=== PATIENT | male | born 1980 ===

== ENCOUNTER 2018-08-31 15:06 | Emergency (ER) | payer MEDICAID, OTHER ==
[2018-08-31] MEDS ORDERED: Tdap Vaccine 0.5 ml Vial (10-64 yrs) IM ONE (15:24)
[2018-08-31] MEDS ORDERED: Sodium Chloride 0.9% 500 ML IV STA (15:24)
[2018-08-31] MEDS ORDERED: Bacitracin 500 Units/gm Oint Foilpak UD TOP ONE (15:24)
[2018-08-31] MEDS ORDERED: Multivitamin (MVI) 10 ML, Thiamine 100 MG, Folic Acid 1 MG in Sodium Chloride 0.9% 1,00... IV ONE (15:24)
[2018-08-31 15:47] LABS: BASO # 0.1 K/uL (0.0-0.2); BASO % 0.8 % (0.0-2.0); EOS # 0.3 K/uL (0.0-0.7); EOS % 3.7 % (0.0-4.0); HEMOGLOBIN 13.7 g/dL (12.0-18.0); LYMPH # 3.5 K/uL (1.0-4.3); LYMPH % 39.8 % (20.0-40.0); MEAN CELL VOLUME 83.1 fl (80.0-94.0); MEAN CORPUSCULAR HGB CONC 33.6 g/dL (33.0-37.0); MEAN PLATELET VOLUME 8.1 fl (7.2-11.7); MONO # 0.6 K/uL (0.0-0.8); NEUT # 4.3 K/uL (1.8-7.0); NEUT % 48.7 % (50.0-75.0); NRBC % 0.1 % (0.0-0.0); RBC 4.91 Mil/uL (4.40-5.90); RED CELL DISTRIBUTION WIDTH 15.9 % (11.5-14.5); WHITE BLOOD COUNT 8.8 K/uL (4.8-10.8)
--- NOTE | 2018-08-31 15:52 | ED PDOC ---
HPI: Psych/Substance Abuse Time Seen by Provider: 08/31/18 15:09 Chief Complaint (Nursing): Substance Abuse Chief Complaint (Provider): Substance Abuse History Per: Patient History/Exam Limitations: no limitations Onset/Duration Of Symptoms: Mins Current Symptoms Are (Timing): Still Present Modifying Factor(s): Marijuana, Cocaine Additional Complaint(s): 38 year old male with a history of polysubstance abuse, asthma and diabetes presents to the ED for an evaluation of drug and alcoholic intoxication. Patient fell down after using a bag of heroin that he snorted. As per EMS, patient was found on the floor minimally responsive, with head injury and breathing at [employer]. Dosage of intranasal narcan administered by EMS. Patient admits to drinking alcohol heavily and usage of marijuana. He has been seen at [facility]. Denies SI/HI or hallucinations. Past Medical History Reviewed: Historical Data, Nursing Documentation, Vital Signs Vital Signs: Last Vital Signs Temp 98.1 F 08/31/18 15:08 Pulse 116 H 08/31/18 15:08 Resp 18 08/31/18 15:08 BP 96/47 L 08/31/18 15:08 Pulse Ox 100 08/31/18 15:08 - Medical History PMH: Asthma, Bronchitis, Depression Denies: Diabetes, Hepatitis, HIV, HTN, Chronic Kidney Disease, Seizures, Sexually Transmitted Disease - Surgical History Surgical History: Tonsillectomy - Family History Family History: States: Unknown Family Hx - Social History Current smoker - smoking cessation education provided: Yes Alcohol: Social Drugs: Cannabis - Immunization History Hx Tetanus Toxoid Vaccination: No Hx Influenza Vaccination: No Hx Pneumococcal Vaccination: No - Home Medications Home Medications: Ambulatory Orders Medication Instructions Recorded RX: Albuterol HFA [Ventolin HFA 90 2 puff IH [id number] 07/20/18 mcg/actuation (8 g)] Fluticasone Propionate [Flovent 0.044 mg IH BID 30 Days #1 ml 07/30/18 Hfa] Methylprednisolone [Medrol Dose 4 mg PO DAILY #21 mg 07/30/18 Pack (21 tabs)] RX: Escitalopram [Lexapro] 10 mg PO DAILY #30 tab 07/30/18 RX: Folic Acid 1 mg PO DAILY #30 tab 07/30/18 RX: Gabapentin [Neurontin] 300 mg PO TID #90 cap 07/30/18 RX: Multivitamins [Hexavitamin] 1 tab PO DAILY tab 07/30/18 RX: Thiamine [Vitamin B1 Tab] 100 mg PO DAILY #30 tab 07/30/18 RX: traZODone [Desyrel] 100 mg PO HS #30 tab 07/30/18 RX: Albuterol HFA [Ventolin HFA 90 1 puff INH RQ6 PRN #1 inhaler 08/21/18 mcg/actuation (8 g)] RX: Gabapentin [Neurontin] 100 mg PO TID #90 cap 08/21/18 RX: buPROPion XL [Wellbutrin XL] 150 mg PO DAILY #30 t24 08/21/18 RX: traZODone [Desyrel] 50 mg PO HS #30 tab 08/21/18 Azithromycin [Zithromax] 250 mg PO DAILY #6 tab 08/25/18 Methylprednisolone [Medrol Dose 4 mg PO DAILY #21 mg 08/25/18 Pack (21 tabs)] RX: Albuterol HFA [Ventolin HFA 90 2 puff IH [id number] #1 inhaler 08/25/18 mcg/actuation (8 g)] Naloxone HCl [Narcan] 4 mg NS ONCE PRN #1 spray 08/31/18 - Allergies Allergies/Adverse Reactions: Allergies Allergy/AdvReac Type Severity Reaction Status Date / Time No Known Allergies Allergy Verified 08/31/18 15:08 Review of Systems Review Of Systems: ROS cannot be obtained secondary to pt's inabilty to answer questions. Musculoskeletal: Positive for: Neck Pain, Back Pain Skin: Positive for: Lesions (face) Neurological: Positive for: Headache Psych: Negative for: Suicidal ideation (homicidal ideation) Physical Exam - Reviewed Nursing Documentation Reviewed: Yes Vital Signs Reviewed: Yes - Physical Exam Appears: Positive for: Non-toxic (lethargic, homeless, disheveled, unkept) Head Exam: Positive for: ATRAUMATIC, NORMAL INSPECTION, NORMOCEPHALIC Eye Exam: Positive for: Normal appearance, EOMI, PERRL ENT: Positive for: Other (Hemostatic superficial irregular laceration on nasal bridge, not gaping and subtle nasal edema) Neck: Positive for: Decreased ROM (posterior neck with no step-up on cervical spine) Cardiovascular/Chest: Positive for: Regular Rate, Rhythm, Tachycardia Respiratory: Positive for: Normal Breath Sounds. Negative for: Wheezing, Respiratory Distress Gastrointestinal/Abdominal: Positive for: Soft. Negative for: Tenderness Back: Positive for: Normal Inspection. Negative for: L CVA Tenderness, R CVA Tenderness Extremity: Negative for: Deformity Lymphatic: Negative for: Adenopathy Neurologic/Psych: Positive for: Alert, Oriented (x3), Other (slurred speech). Negative for: Motor/Sensory Deficits - Laboratory Results Result Diagrams: 08/31/18 15:30 08/31/18 15:30 - ECG O2 Sat by Pulse Oximetry: 100 (RA) Pulse Ox Interpretation: Normal - CT Scan/US CT head w/o contrast Other Rad Studies (CT/US): Read By Radiologist, Radiology Report Reviewed (see MDM note) CT maxillofacial w/o contrast Other Rad Studies (CT/US): Read By Radiologist, Radiology Report Reviewed (see MDM note) Medical Decision Making Medical Decision Making: Time: 1524 Initial Impression: Drug intoxication, head injury, facial abrasion Differential Diagnosis: traumatic brain injury, dehydration, facial fracture Initial Plan: Head w/o Contrast [CT] Maxillofacial w/o Contrast [CT] EKG Alcohol Serum CMP Drug Screen Magnesium Phosphorus ED Urine Dipstick CBC w/ Differential Glucose, Blood, POC Tetanus 0.5ml Normal Saline 500mls/hr Bacitracin Sodium Chloride 0.9% 1000ml MVI 10ml Thiamine 100mg 150mls/hr Paid Intern Reevaluation Time: 1636 CT head w/o contrast read and reviewed by radiologist FINDINGS: HEMORRHAGE: No intracranial hemorrhage. BRAIN: No mass effect or edema. No evidence of acute infarct. There is incidental calcification along the anterior falx cerebri. VENTRICLES: No hydrocephalus. Incidental cavum septum pellucidum. CALVARIUM: No fracture. Right frontal scalp contusion with small hematoma. PARANASAL SINUSES: Minimal chronic ethmoid, sphenoid and bilateral maxillary sinusitis. MASTOID AIR CELLS: Bilateral nonspecific mastoid effusions. Correlate clinically. OTHER FINDINGS: None. IMPRESSION: No intracranial hemorrhage. Right frontal scalp contusion with small hematoma. Mild chronic paranasal sinusitis. Nonspecific bilateral mastoid effusions. Time: 1639 CT maxillofacial w/o contrast read and reviewed by radiologist FINDINGS: NASAL BONES: Unremarkable. ORBITS: No fracture. No intraorbital hemorrhage. Globes rounded and symmetric. PARANASAL SINUSES/ MASTOIDS: Mild chronic sphenoid, ethmoid and bilateral maxillary sinusitis. MAXILLA: Unremarkable. MANDIBLE/ TEMPOROMANDIBULAR JOINTS: Unremarkable. SKULL BASE: Unremarkable. TEMPORAL BONES: No fluid or soft tissue density within the middle ear bilaterally. Nonspecific bilateral mastoid effusion noted. OTHER FINDINGS: None. IMPRESSION: No evidence of acute facial fracture. Mild chronic paranasal sinusitis. Nonspecific bilateral mastoid effusion. 2200 Pt sleeping, easily arousable, reporting hunger. 2300 Pt ate meal in ER. Maintaining alertness with no signs of withdrawal. Stable for discharge. Drug addiction resources provided. Scribe Attestation: Documented by Alicia Frost, acting as a scribe for Gina Robison MD. Provider Scribe Attestation: All medical record entries made by the Scribe were at my direction and personally dictated by me. I have reviewed the chart and agree that the record accurately reflects my personal performance of the history, physical exam, medical decision making, and the department course for this patient. I have also personally directed, reviewed, and agree with the discharge instructions and disposition. Scribe Attestation: Documented by Josephine Harrison, acting as a scribe for Gina Robison MD. Provider Scribe Attestation: All medical record entries made by the Scribe were at my direction and personally dictated by me. I have reviewed the chart and agree that the record accurately reflects my personal performance of the history, physical exam, medical decision making, and the department course for this patient. I have also personally directed, reviewed, and agree with the discharge instructions and disposition. Disposition - Clinical Impression Clinical Impression: Head injury, Opioid use disorder, severe, dependence, Alcohol intoxication - Disposition Referrals: [facility] [Outside] [facility] [Outside] Disposition: Routine/Home Disposition Time: 23:28 Condition: IMPROVED Prescriptions: Naloxone HCl [Narcan] 4 mg NS ONCE PRN #1 spray PRN Reason: opiate overdose Instructions: Wound Care (DC), Minor Head Injury (DC), Alcohol Abuse and Alcoholism (DC), Opioid Use Disorder
[2018-08-31 15:54] LABS: ALB/GLOB RATIO 1.3 (1.0-2.1); ALBUMIN 3.9 g/dL (3.5-5.0); ALT/SGPT 567 U/L (21-72); AST/SGOT 341 U/L (17-59); BLOOD UREA NITROGEN 14 mg/dl (9-20); GFR NON-AFRICAN AMERICAN > 60
[2018-08-31] MEDS ORDERED: Potassium Chloride 20 mEq ER Tab PO STA (16:10)
--- NOTE | 2018-08-31 16:40 | CT ---
Date of service: 08/31/2018 PROCEDURE: CT HEAD WITHOUT CONTRAST. HISTORY: head injury post fall heroin overdose COMPARISON: Not available TECHNIQUE: Axial computed tomography images were obtained through the head/brain without intravenous contrast. Radiation dose: Total exam DLP = 1781.2 mGy-cm. This CT exam was performed using one or more of the following dose reduction techniques: Automated exposure control, adjustment of the mA and/or kV according to patient size, and/or use of iterative reconstruction technique. FINDINGS: HEMORRHAGE: No intracranial hemorrhage. BRAIN: No mass effect or edema. No evidence of acute infarct. There is incidental calcification along the anterior falx cerebri. VENTRICLES: No hydrocephalus. Incidental cavum septum pellucidum. CALVARIUM: No fracture. Right frontal scalp contusion with small hematoma. PARANASAL SINUSES: Minimal chronic ethmoid, sphenoid and bilateral maxillary sinusitis. MASTOID AIR CELLS: Bilateral nonspecific mastoid effusions. Correlate clinically. OTHER FINDINGS: None. IMPRESSION: No intracranial hemorrhage. Right frontal scalp contusion with small hematoma. Mild chronic paranasal sinusitis. Nonspecific bilateral mastoid effusions.
--- NOTE | 2018-08-31 16:43 | CT ---
Date of service: 08/31/2018 PROCEDURE: CT MAXILLOFACIAL BONES WITHOUT CONTRAST HISTORY: fall intox facial injury COMPARISON: None available. TECHNIQUE: Contiguous axial CT images of the maxillofacial bones were obtained. Coronal and sagittal reformats were generated. Radiation dose: Total exam DLP = 0.0 mGy-cm. This CT exam was performed using one or more of the following dose reduction techniques: Automated exposure control, adjustment of the mA and/or kV according to patient size, and/or use of iterative reconstruction technique. FINDINGS: NASAL BONES: Unremarkable. ORBITS: No fracture. No intraorbital hemorrhage. Globes rounded and symmetric. PARANASAL SINUSES/ MASTOIDS: Mild chronic sphenoid, ethmoid and bilateral maxillary sinusitis. MAXILLA: Unremarkable. MANDIBLE/ TEMPOROMANDIBULAR JOINTS: Unremarkable. SKULL BASE: Unremarkable. TEMPORAL BONES: No fluid or soft tissue density within the middle ear bilaterally. Nonspecific bilateral mastoid effusion noted. OTHER FINDINGS: None. IMPRESSION: No evidence of acute facial fracture. Mild chronic paranasal sinusitis. Nonspecific bilateral mastoid effusion.
[2018-08-31] MEDS ORDERED: Potassium Chloride 20 mEq ER Tab PO ONE (17:41)
[2018-08-31 22:50] VITALS: TEMP 98.3
[2018-09-01 00:54] VITALS: BP 124/70; PULSE 78; RESP 16
--- NOTE | 2018-09-01 18:33 | CARD ---
APPROVED REPORT Date of service: 08/31/2018 EKG Measurement Heart [id number] <Conclusion> Sinus tachycardia Otherwise normal ECG
[2018-09-01 22:01] VITALS: O2SAT 100
== END 2018-09-01 00:53 | disposition home or self-care (01) ==
LOC: H.ER 15:06
DX: F11.20 Opioid dependence, uncomplicated (principal); S09.90XA Unspecified injury of head, initial encounter; S00.03XA Contusion of scalp, initial encounter; S00.81XA Abrasion of other part of head, initial encounter; W19.XXXA Unspecified fall, initial encounter; Y92.89 Other specified places as the place of occurrence of the external cause; F10.129 Alcohol abuse with intoxication, unspecified; F17.200 Nicotine dependence, unspecified, uncomplicated; J32.9 Chronic sinusitis, unspecified; E11.9 Type 2 diabetes mellitus without complications
CPT/HCPCS: 70450; 70486; 80053; 80320; 82948; 83735; 84100; 85025; 90471; 90715; 93005; 96360; 99284; J3411; J7030

== ENCOUNTER 2019-02-28 19:35 | Emergency (ER) | payer MEDICAID ==
[2019-02-28 19:35] VITALS: BMI 36.1
[2019-02-28 19:41] VITALS: BP 137/79; PULSE 76; RESP 18; TEMP 98.2; O2SAT 99
--- NOTE | 2019-02-28 20:16 | ED PDOC ---
HPI: Psych/Substance Abuse Time Seen by Provider: 02/28/19 19:48 Chief Complaint (Nursing): Medical Clearance Chief Complaint (Provider): Medical and Psychiatric Clearance History Per: Patient, Other ([facility]) History/Exam Limitations: no limitations Additional Complaint(s): 39 year old male presents to the ED under [facility] custody for medical and psychiatric clearance for incarceration. Patient reports he typically uses 10 bags of heroin IV daily, his last use 0800 this morning, but after being arrested earlier today, has been having withdrawal symptoms including one episode of vomiting, chills, and anxiousness. Denies visual / auditory hallucinations, diarrhea, and SI/ HI. Patient additionally complaining of right shoulder pain for the past month s/p falling on it. At onset, he was worked up at [facility] where XRs demonstrated arthritis, but no fracture. Past Medical History Reviewed: Historical Data, Nursing Documentation, Vital Signs Vital Signs: Last Vital Signs Temp 98.2 F 02/28/19 19:39 Pulse 76 02/28/19 19:39 Resp 18 02/28/19 19:39 BP 137/79 02/28/19 19:39 Pulse Ox 99 02/28/19 19:39 Primary Care Provider: FAMILY PROVIDER,NO - Medical History PMH: Anxiety, Asthma, Bronchitis, Depression, Diabetes Denies: Hepatitis, HIV, HTN, Chronic Kidney Disease, Seizures, Sexually Transmitted Disease - Surgical History Surgical History: Tonsillectomy - Family History Family History: States: Unknown Family Hx - Social History Current smoker - smoking cessation education provided: Yes Alcohol: Other (drinks daily) Drugs: Cannabis, Opiates (heroin IV (typically 10 bags daily)) - Immunization History Hx Tetanus Toxoid Vaccination: No Hx Influenza Vaccination: No Hx Pneumococcal Vaccination: No - Home Medications Home Medications: Ambulatory Orders Medication Instructions Recorded Folic Acid 1 mg PO DAILY #30 tab 09/24/18 Gabapentin [Neurontin] 300 mg PO BID #60 cap 09/24/18 Multivitamins [Hexavitamin] 1 tab PO DAILY #30 tab 09/24/18 Thiamine [Vitamin B1 Tab] 100 mg PO DAILY #30 tab 09/24/18 Albuterol Sulfate [Proair Hfa] 0.09 mg IH Q6H PRN #1 inh 11/05/18 Fluticasone/Salmeterol 100/50 1 puff INH Q12H 30 Days #1 inh 11/05/18 [Advair Diskus 100/50] Methylprednisolone [Medrol Dose 4 mg PO DAILY #21 mg 11/05/18 Pack (21 tabs)] Albuterol HFA [Ventolin HFA 90 2 puff IH [id number] #1 puff 11/23/18 mcg/actuation (8 g)] Azithromycin [Zithromax] 250 mg PO DAILY #4 tab 11/23/18 predniSONE [predniSONE Tab] 50 mg PO DAILY #4 tab 11/23/18 Albuterol HFA [Ventolin HFA 90 1 puff IH Q4 PRN #1 inh 12/12/18 mcg/actuation (8 g)] Prednisone 50 mg PO DAILY #5 tab 12/12/18 Albuterol HFA [Ventolin HFA 90 2 puff IH Q4H PRN #1 puff 01/07/19 mcg/actuation (8 g)] Prednisone [Deltasone] 40 mg PO DAILY #8 tablet 01/07/19 Spacer, Inhalation [Aerochamber] 1 dev IH DAILY #1 dev 01/07/19 Acetaminophen [Tylenol 325mg tab] 650 mg PO Q4 #50 tab 01/18/19 Albuterol HFA [Ventolin HFA 90 2 puff IH Q6 #1 inhaler 01/18/19 mcg/actuation (8 g)] predniSONE [predniSONE Tab] 2 tab PO DAILY #8 tab 01/18/19 - Allergies Allergies/Adverse Reactions: Allergies Allergy/AdvReac Type Severity Reaction Status Date / Time No Known Allergies Allergy Verified 01/06/19 23:21 Review of Systems ROS Statement: Except As Marked, All Systems Reviewed And Found Negative (as per HPI) Constitutional: Positive for: Chills Gastrointestinal: Positive for: Vomiting (x1 episode). Negative for: Diarrhea Musculoskeletal: Positive for: Shoulder Pain (right) Psych: Positive for: Anxiety, Withdrawal (from heroin). Negative for: Suicidal ideation (or homicidal ideation), Other (visual or auditory hallucinations) Physical Exam - Reviewed Nursing Documentation Reviewed: Yes Vital Signs Reviewed: Yes - Physical Exam Appears: Positive for: Non-toxic, No Acute Distress Head Exam: Positive for: ATRAUMATIC, NORMOCEPHALIC Skin: Positive for: Normal Color (skin smooth with no goosebumps; needle ramos noted to bilateral antecubital fossa) Eye Exam: Positive for: Normal appearance, EOMI, PERRL ENT: Positive for: Other (tacky mucus membranes) Neck: Positive for: Painless ROM, Supple Cardiovascular/Chest: Positive for: Regular Rate, Rhythm. Negative for: Murmur Respiratory: Positive for: Normal Breath Sounds. Negative for: Respiratory Distress Gastrointestinal/Abdominal: Positive for: Normal Exam, Soft. Negative for: Tenderness Back: Positive for: Normal Inspection. Negative for: Decreased ROM Extremity: Positive for: Tenderness (diffusely to right shoulder with all movements of the shoulder), Other (right shoulder strength 4/5). Negative for: Deformity (to right shoulder) Lymphatic: Negative for: Adenopathy Neurological/Psych: Positive for: Awake, Alert, Oriented (x3) - ECG O2 Sat by Pulse Oximetry: 99 (RA) Pulse Ox Interpretation: Normal - Progress ED Course And Treament: COWS Score for Opiate Withdrawal from [place] on 02/28/2019 All calculations should be rechecked by clinician prior to use RESULT SUMMARY: 6 points Mild withdrawal INPUTS: Resting Pulse Rate (BPM) > 0 = ?80 Sweating > 1 = Subjective report of chills or flushing Restlessness observation during assessment > 0 = Able to sit still Pupil size > 0 = Pupils pinned or normal size for room light Bone or joint aches > 1 = Mild diffuse discomfort Runny nose or tearing > 0 = Not present GI Upset > 3 = Vomiting or diarrhea Tremor observation of outstretched hands > 0 = No tremor Yawning observation during assessment > 0 = No yawning Anxiety or irritability > 1 = Patient reports increasing irritability or anxiousness Gooseflesh skin > 0 = Skin is smooth Medical Decision Making Medical Decision Making: Initial Impression: mild opiate withdrawal, chronic shoulder pain Initial Plan: --Tylenol 975mg PO --Zofran mg PO --Accucheck Patient medically stable for incarceration. Pending crisis evaluation for psychiatric clearance. 2044 Evaluated by CW. Pt psychiatrically stable for incarceration. Scribe Attestation: Documented by Elissa Stevenson, acting as a scribe for Gina Robison MD. Provider Scribe Attestation: All medical record entries made by the Scribe were at my direction and personally dictated by me. I have reviewed the chart and agree that the record accurately reflects my personal performance of the history, physical exam, medical decision making, and the department course for this patient. I have also personally directed, reviewed, and agree with the discharge instructions and disposition. Disposition - Clinical Impression Clinical Impression: Opiate addiction, Shoulder pain Counseled Patient/Family Regarding: Studies Performed, Diagnosis, Need For Followup (resources for addiction services given) - Disposition Disposition: Discharged/Transfer to Law Enforcement Disposition Time: 20:45 Condition: STABLE Additional Instructions: MEDICALLY AND PSYCHIATRICALLY STABLE FOR INCARCERATION Instructions: Opioid Use Disorder, Shoulder Pain (DC)
== END 2019-02-28 20:45 ==
LOC: H.ER 19:35
DX: F11.23 Opioid dependence with withdrawal (principal); E11.9 Type 2 diabetes mellitus without complications; F17.200 Nicotine dependence, unspecified, uncomplicated; Z86.59 Personal history of other mental and behavioral disorders; J45.909 Unspecified asthma, uncomplicated; Z00.8 Encounter for other general examination; M25.511 Pain in right shoulder